=== PATIENT | female | born 1985 | race Caucasian/White ===

== ENCOUNTER 2018-10-12 08:02 | Day surgery (SDC) | payer BC ==
[2018-10-12] MEDS ORDERED: Sodium Chloride 0.9% 2.5 ML Syringe FLUSH PRN (08:52)
[2018-10-12] MEDS ORDERED: ceFAZolin 2 GM in Premix Bag 1 BAG IV ONE (08:52)
[2018-10-12] MEDS ORDERED: Sodium Chloride 0.9% 10 ML Syringe FLUSH PRN (08:52)
[2018-10-12] MEDS ORDERED: Sodium Chloride 0.9% 10 ML SDV IV PRN (08:52)
--- NOTE | 2018-10-12 09:42 | PCM.PREANE ---
Preanesthetic Assessment - Anesthesia/Transfusion/Family Hx Anesthesia History: Prior Anesthesia Without Reaction Family History of Anesthesia Reaction: No Transfusion History: No Prior Transfusion(s) Intubation History: Unknown - Review of Systems General: No Symptoms Pulmonary: No Symptoms Cardiovascular: No Symptoms Gastrointestinal: No Symptoms Neurological: No Symptoms Other: Reports: None - Physical Assessment O2 Sat by Pulse Oximetry: 100 Respiratory Rate: 16 Vital Signs: Last Vital Signs Temp 36.1 C 10/12/18 08:56 Pulse 85 10/12/18 08:56 Resp 16 10/12/18 08:56 BP 135/79 10/12/18 08:56 Pulse Ox 100 10/12/18 08:56 Height: 5 ft 6 in Weight: 80.286 kg ASA Class: 2 Mental Status: Alert & Oriented x3 Airway Class: Mallampati = 1 Dentition: Reports: Normal Dentition Thyro-Mental Finger Breadths: 3 Mouth Opening Finger Breadths: 3 ROM/Head Extension: Full Lungs: Clear to Auscultation, Normal Respiratory Effort Cardiovascular: Regular Rate, Regular Rhythm - Lab Values: Laboratory Last Values WBC 10.79 K/uL (4.0-11.0) 10/12/18 09:00 RBC 4.84 M/uL (4.30-5.90) 10/12/18 09:00 Hgb 15.0 g/dL (12.0-16.0) 10/12/18 09:00 Hct 43.4 % (36.0-46.0) 10/12/18 09:00 MCV 89.7 fL (80.0-98.0) 10/12/18 09:00 MCH 31.0 pg (27.0-32.0) 10/12/18 09:00 MCHC 34.6 g/dL (31.0-37.0) 10/12/18 09:00 RDW Std Deviation 45.3 fl (28.0-62.0) 10/12/18 09:00 RDW Coeff of Antelmo 14 % (11.0-15.0) 10/12/18 09:00 Plt Count 265 K/uL (150-400) 10/12/18 09:00 MPV 9.00 fL (7.40-12.00) 10/12/18 09:00 Neut % (Auto) 65.6 % (48.0-80.0) 10/12/18 09:00 Lymph % (Auto) 21.5 % (16.0-40.0) 10/12/18 09:00 [place] % (Auto) 11.0 % (0.0-15.0) 10/12/18 09:00 Eos % (Auto) 1.3 % (0.0-7.0) 10/12/18 09:00 Baso % (Auto) 0.6 % (0.0-1.5) 10/12/18 09:00 Neut # (Auto) 7.1 K/uL (1.4-5.7) H 10/12/18 09:00 Lymph # (Auto) 2.3 K/uL (0.6-2.4) 10/12/18 09:00 [place] # (Auto) 1.2 K/uL (0.0-0.8) H 10/12/18 09:00 Eos # (Auto) 0.1 K/uL (0.0-0.7) 10/12/18 09:00 Baso # (Auto) 0.1 K/uL (0.0-0.1) 10/12/18 09:00 Nucleated RBC % 0.0 /100WBC 10/12/18 09:00 Nucleated RBCs # 0 K/uL 10/12/18 09:00 HCG, Qual NEGATIVE (NEG) 10/12/18 09:00 - Allergies Allergies/Adverse Reactions: Allergies Allergy/AdvReac Type Severity Reaction Status Date / Time No Known Allergies Allergy Verified 10/11/18 08:50 - Blood Blood Available: No - Anesthesia Plan Pre-Op Medication Ordered: None - Acknowledgements Anesthesia Type Planned: MAC Pt an Appropriate Candidate for the Planned Anesthesia: Yes Alternatives and Risks of Anesthesia Discussed w Pt/Guardian: Yes Pt/Guardian Understands and Agrees with Anesthesia Plan: Yes PreAnesthesia Questionnaire HEENT History: Reports: Other (See Below) Other HEENT History: wears glasses Cardiovascular History: Reports: None Respiratory History: Reports: None Gastrointestinal History: Reports: None Genitourinary History: Reports: None OFFICE SUPPORT ASSISTANT History: Reports: None Musculoskeletal History: Reports: None Neurological History: Reports: Headaches, Chronic Psychiatric History: Reports: None Endocrine/Metabolic History: Reports: None Hematologic History: Reports: None Immunologic History: Reports: None Oncologic (Cancer) History: Reports: None Dermatologic History: Reports: None - Past Surgical History Head Surgeries/Procedures: Reports: None HEENT Surgical History: Reports: Tonsillectomy Cardiovascular Surgical History: Reports: None Respiratory Surgical History: Reports: None GI Surgical History: Reports: None Female Surgical History: Reports: Breast Biopsy, Other (See Below) Other Female Surgeries/Procedures: bartholin cyst removal several years ago Endocrine Surgical History: Reports: None Neurological Surgical History: Reports: None Musculoskeletal Surgical History: Reports: None Oncologic Surgical History: Reports: Biopsy of Breast Dermatological Surgical History: Reports: None - SUBSTANCE USE Smoking Status *Q: Current Every Day Smoker (6-10 cigarettes per day) Tobacco Use Within Last Twelve Months: Cigarettes Days Per Week of Alcohol Use: 3 Number of Drinks Per Day: 2 Total Drinks Per Week: 6 Recreational Drug Use History: No - HOME MEDS Home Medications: Home Meds Levonorgestrel [Mirena] 1 device VAG ONETIME 10/11/18 [History] Magnesium Citrate 125 mg PO DAILY 10/11/18 [History] Vitamin B Complex with C [Super B With Vitamin C] 1 tab PO DAILY 10/11/18 [ History] diphenhydrAMINE [Benadryl] 2 tab PO ASDIRECTED PRN 10/11/18 [History] - CURRENT (IN HOUSE) MEDS Current Meds: Current Medications Sodium Chloride (Saline Flush) 10 ml FLUSH ASDIRECTED PRN PRN Reason: Keep Vein Open Sodium Chloride (Saline Flush) 2.5 ml FLUSH ASDIRECTED PRN PRN Reason: Keep Vein Open Sodium Chloride (Normal Saline) 10 ml IV ASDIRECTED PRN PRN Reason: IV Use Discontinued Medications Cefazolin Sodium/Dextrose 2 gm (/ Premix) 50 mls @ 100 mls/hr IV ONETIME ONE Stop: 10/12/18 09:21
[2018-10-12] MEDS ORDERED: fentaNYL 100 MCG/2 ML SDV ONE (09:46)
[2018-10-12] MEDS ORDERED: Propofol 200 MG/20 ML SDV ONE ×3 (09:46→10:48)
[2018-10-12] MEDS ORDERED: Midazolam 1 MG/ML 2 ML SDV ONE (09:47)
[2018-10-12] MEDS ORDERED: Dexamethasone 4 MG/ML 5 ML MDV ONE (10:35)
[2018-10-12] MEDS ORDERED: Ondansetron 4 MG/2 ML SDV ONE (10:35)
[2018-10-12] MEDS ORDERED: fentaNYL 100 MCG/2 ML SDV IVPUSH PRN (10:42)
[2018-10-12] MEDS ORDERED: HYDROmorphone 2 MG/ML SDV IVPUSH ONE (10:42)
[2018-10-12] MEDS ORDERED: Ketorolac 30 MG/ML SDV ONE (11:03)
--- NOTE | 2018-10-12 11:16 | PCM.POSTAN ---
POST ANESTHESIA ASSESSMENT - MENTAL STATUS Mental Status: Alert (0), Oriented - RESPIRATORY Respiratory Status: Respiratory Rate WNL, Airway Patent, O2 Saturation Stable - CARDIOVASCULAR CV Status: Pulse Rate WNL, Blood Pressure Stable - GASTROINTESTINAL GI Status: No Symptoms - PAIN Pain Score: 6 (fentanyl ordered) - POST OP HYDRATION Hydration Status: Adequate & Stable - OBSERVATIONS Free Text/Narrative:: No anesthesia problems, patient skipped recovery room stage of postoperative care
--- NOTE | 2018-10-12 11:18 | PCM.OPNOTE ---
- General Post-Op/Procedure Note Date of Surgery/Procedure: 10/12/18 Operative Procedure(s): Right bartholin's cyst excision Findings: 4 cm right Bartholin's cyst, symptomatic Pre Op Diagnosis: Right Bartholin's cyst Post-Op Diagnosis: Same Anesthesia Technique: Local, MAC Primary Surgeon: Vidya Agudelo Fluid Replacement, Intraop: 800 EBL in mLs: 30 Complications: none known Condition: Good Free Text/Narrative:: Dictation [id number]
--- NOTE | 2018-10-12 18:24 | OR ---
SURGEON: Vidya Agudelo M.D. DATE OF PROCEDURE: 10/12/2018 PREOPERATIVE DIAGNOSIS: Right Bartholin cyst. POSTOPERATIVE DIAGNOSIS: Right Bartholin cyst. PROCEDURE: Excision of right Bartholin cyst. ANESTHESIA: MAC/local. ESTIMATED BLOOD LOSS: 30 mL. FLUIDS: 800 mL of crystalloid. COMPLICATIONS: None. FINDINGS: 4 cm right Bartholin cyst. DISPOSITION: The patient to PACU in stable condition. SPECIMENS: To Pathology. 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 It is now up to approximately 4 cm in size. She would like to proceed with surgical intervention. Risks of procedure have been discussed. Proper consent obtained. PROCEDURE DETAILS: The patient was taken to the operating room where she underwent MAC anesthetic, was placed in modified dorsal lithotomy position, prepped and draped in the usual sterile fashion. SCDs to lower extremities. Bladder was drained. A time-out was performed. The region of the Bartholin cyst was infiltrated with 1% lidocaine and epinephrine, 9 mL total used during this application of anesthesia. An incision was made over the vaginal aspect of the region of the cyst. The edge of the vaginal mucosa was grasped on either side with Allis clamps and careful blunt and sharp dissection was performed in order to excise the Bartholin cyst as much of the gland as was probable. The base of this was secured with hemostats and the cyst and gland were excised and sent to Pathology for further analysis. The base was suture tied x2. The wound bed was cauterized. The remaining cyst wall was now marsupialized to the overlying mucosa with 3-0 Vicryl in pursestring fashion with an SH needle. A deeper subcutaneous tissue was now replicated with 3-0 Vicryl in continuous running fashion. The vaginal mucosa was reapproximated using 3-0 Vicryl with SH needle. Hemostasis appeared evident. Sponge, instrument, and needle counts were correct x2. Ice pack was applied to the area, and the patient will go to PACU in stable condition. FERCHO / MYNOR /[id number]
== END 2018-10-12 13:08 | disposition home or self-care (01) ==
LOC: MW.SDS 08:02
PROVIDERS: ATTEND Obstetrics & Gynecology
DX: N75.0 Cyst of Bartholin's gland (principal); F17.210 Nicotine dependence, cigarettes, uncomplicated; Z79.899 Other long term (current) drug therapy
CPT/HCPCS: 36415; 84703; 85025; J1100; J1885; J2001; J2250; J2405; J2704; J3010